=== PATIENT | male | born 1965 | race African-American/Black ===

== ENCOUNTER 2024-09-22 10:04 | Emergency (ER) | payer MEDICARE ==
[~2024-09-22] VITALS: Ht 180.3 cm; Wt 72.0 kg
[2024-09-22 10:07] VITALS: BP 118/76; TEMP 36.6; O2SAT 100
[2024-09-22 10:11] VITALS: PULSE 92; RESP 13; O2SAT 100
[2024-09-22] MEDS ORDERED: ACET-2708 MT (11:12)
[2024-09-22] MEDS: KETOROLAC 30MG/ML VIAL IM ONE (11:15)
== END 2024-09-22 11:26 | disposition home or self-care (01) ==
LOC: ER 10:04
DX: M25.511 Pain in right shoulder (principal); V18.2XXA Unspecified pedal cyclist injured in noncollision transport accident in nontraffic accident, initial encounter; Y93.89 Activity, other specified; Y92.89 Other specified places as the place of occurrence of the external cause; Y99.8 Other external cause status
CPT/HCPCS: 99283; 29105; 73030; 96372; J1885